=== PATIENT | male | born 1955 | race Caucasian/White ===

== ENCOUNTER 2017-08-20 16:55 | Inpatient (IN) | payer OTHER ==
[~2017-08-20] VITALS: Ht 193 cm; Wt 123.1 kg
[2017-08-20] MEDS ORDERED: IV NORMAL SALINE 1,000ML 1,000 ML IV SCH (17:05)
--- NOTE | 2017-08-20 17:05 | PHYS DOC ---
General Chief Complaint: RAPID HEART RATE Stated Complaint: shortness of breath Time Seen by MD: 17:03 Source: patient, RN/MD Exam Limitations: no limitations Problems: (JOSE TOVAR DO) Time Seen by MD: 18:40 Problems: (TROY GOLDSTEIN MD) History of Present Illness Initial Comments 61-year-old male sent downstairs from PCPs office for rapid heart rate and dyspnea. Patient states that he's had dyspnea with exertion and at times at rest intermittently for the past month. He denies any actual chest pain diaphoresis nausea arm or neck symptoms. Patient denies any ongoing medical problems he takes no medications daily is a nonsmoker and nonuser of alcohol or illicit substances. Through the discussion patient does state that his father had atrial fibrillation he is familiar with rate control and anticoagulation. Renetta Montague called down to the emergency department and spoke to me, states that this 7-year-old male presented to her office complaining of shortness of breath for the past month. States that he denied any chest pain or syncope, his heart rate was found to range from 132-150 bpm oxygen saturation 97% on room air and blood pressure 90/60. She is getting together a full H&P and we'll send it down with the patient, she reports that he takes no medications daily. Timing/Duration: other (one month) Severity: moderate Modifying Factors: worse with movement, improves with rest Associated Symptoms: shortness of breath (JOSE TOVAR DO) Allergies: Coded Allergies: No Known Drug Allergies (Unverified , 08/20/17) Past Medical History Medical History: no pertinent history Surgical History: no surgical history (JOSE TOVAR DO) Social History Smoker: non-smoker Alcohol: none Drugs: none (JOSE TOVAR DO) Review of Systems Constitutional: denies chills, denies diaphoresis, denies fever, malaise Respiratory: denies cough, shortness of breath, denies wheezing Cardiovascular: denies chest pain, denies palpitations, denies syncope Gastrointestinal: denies abdominal pain, denies nausea, denies vomiting Musculoskeletal: denies back pain, denies joint swelling, denies muscle pain, denies neck pain Psychiatric/Neurological: denies headache, denies numbness, denies paresthesia Hematologic/Lymphatic: denies blood clots, denies easy bleeding, denies easy bruising (JOSE TOVAR DO) Physical Exam General Appearance: WD/WN, no apparent distress Eyes: bilateral eye normal inspection, bilateral eye PERRL, bilateral eye EOMI Ear, Nose, Throat: hearing grossly normal, normal ENT inspection, normal pharynx Neck: non-tender, supple Respiratory: normal breath sounds, no respiratory distress Cardiovascular: normal peripheral pulses, tachycardia, irregularly irregular Gastrointestinal: normal bowel sounds, soft Back: no CVA tenderness, no vertebral tenderness Extremities: normal range of motion, non-tender, normal inspection, no pedal edema, no calf tenderness Neurologic/Psychiatric: haz tech II-XII nml as tested, no motor/sensory deficits, alert, normal mood/affect, oriented x 3 Skin: normal color, warm/dry (JOSE TOVAR DO) Orders, Labs, Meds EKG: Atrial fibrillation with rapid ventricular response 137 bpm interpreted by hi 1814: Multiple studies are pending, patient signed out to Dr. Goldstein at shift change. See his documentation for results and patient disposition. (JOSE TOVAR DO) Orders, Labs, Meds Laboratory Tests Test 08/20/17 17:45 White Blood Count 6.8 x10^3/uL (4.0-11.0) Red Blood Count 4.78 x10^6/uL (4.30-5.70) Hemoglobin 14.3 g/dL (13.0-17.5) Hematocrit 43.1 % (39.0-53.0) Mean Corpuscular Volume 90 fL (79-100) Mean Corpuscular Hemoglobin 30 pg (25-35) Mean Corpuscular Hemoglobin Concent 33 g/dL (31-37) Red Cell Distribution Width 15.6 % (11.5-14.5) H Platelet Count 163 x10^3/uL (140-400) Neutrophils (%) (Auto) 64 % (31-73) Lymphocytes (%) (Auto) 23 % (24-48) L Monocytes (%) (Auto) 11 % (0-9) H Eosinophils (%) (Auto) 2 % (0-3) Basophils (%) (Auto) 1 % (0-3) Neutrophils # (Auto) 4.4 x10^3uL (1.8-7.7) Lymphocytes # (Auto) 1.6 x10^3/uL (1.0-4.8) Monocytes # (Auto) 0.7 x10^3/uL (0.0-1.1) Eosinophils # (Auto) 0.1 x10^3/uL (0.0-0.7) Basophils # (Auto) 0.0 x10^3/uL (0.0-0.2) Sodium Level 140 mmol/L (136-145) Potassium Level 4.0 mmol/L (3.5-5.1) Chloride Level 105 mmol/L (98-107) Carbon Dioxide Level 25 mmol/L (21-32) Anion Gap 10 (6-14) Blood Urea Nitrogen 16 mg/dL (8-26) Creatinine 0.9 mg/dL (0.7-1.3) Estimated GFR (Cockcroft-Gault) 86.1 BUN/Creatinine Ratio 18 (6-20) Glucose Level 104 mg/dL (70-99) H Lactic Acid Level 1.0 mmol/L (0.4-2.0) Calcium Level 8.7 mg/dL (8.5-10.1) Total Bilirubin 1.0 mg/dL (0.2-1.0) Aspartate Amino Transferase (AST) 32 U/L (15-37) Alanine Aminotransferase (ALT) 52 U/L (16-63) Alkaline Phosphatase 71 U/L (46-116) Creatine Kinase 145 U/L (39-308) Troponin I Quantitative 0.025 ng/mL (0-0.055) KP-Aqn-R-Type Natriuretic Peptide 3527 pg/mL (0-124) H Total Protein 6.8 g/dL (6.4-8.2) Albumin 3.6 g/dL (3.4-5.0) Albumin/Globulin Ratio 1.1 (1.0-1.7) Lipase 320 U/L (73-393) [address] [address] IMAGING REPORT Signed PATIENT: MAREN CARMONA ACCOUNT: [id number] : 1955 LOCATION: ER AGE: 61 SEX: M EXAM STATUS: REG ER ORD. PHYSICIAN: JOSE TOVAR DO REASON: sob PROCEDURE: PORTABLE CHEST 1V PORTABLE CHEST 1V-2 AP images were obtained. History: SOA. Comparison: None are available Findings: Cardiomediastinal silhouette is enlarged. No focal airspace consolidation. No pneumothorax identified. No evidence of pleural effusion. Impression: Enlargement of the cardiac silhouette. No evidence of acute infiltrate. Electronically signed by: Scout Jones MD (08/20/2017 5:34 PM) [facility] DICTATED AND SIGNED BY: SCOUT JONES MD DATE: 08/20/171731 CC: MARAH MONTAGUE APRN; JOSE TOVAR ~ Is a pleasant 7-year-old male with no major medical problems who presents with irregular heartbeat and shortness of breath. On initial presentation it looks like he is in A. fib and RVR with no history of PE or risk factors for PE he seconds several risk for PE because of untreated H her for evaluation. Patient is not tachypneic hypoxic but is very tachycardic. He was given digoxin prior to my arrival and I encouraged Dr. talbot to give him a dose of verapamil 10 mg IV. He is still tachycardic rate 110. Time is now 7:30 patient's heart rate is improved significantly with the verapamil IV push over 2 minutes. His heart rate is now below 90. He is not short of breath and having chest pain but he did have an elevated d-dimer noted upon initial presentation of 2.28 which will require further definitive definitive testing because of his atrial fibrillation he is at increased risk for PE. CT angios the chest return at approximately 8 PM demonstrates no specific finding for PE he does have evidence of possible early congestive heart failure with significant calcification of the aorta and a small pleural effusion. At this point I discussed factors and admission with the patient at the bedside. Because of his new onset atrial fibrillation I will also treated with a dose of Lovenox to protect him from the development of clots. It looks like he is rate controlled with a heart rate less than 90 I will repeat an EKG and admitted to the hospital to see cardiology and repeat serial enzymes to ensure that he is not suffering from cardiac ischemia. Plate Sensitizer note: On-call physician Dr. Ni Plate Sensitizer called at of the service service called at approximately 8:02 PM Consult called back at 8:02 PM Discussed the case I presented and they agreed with admission. Time of acceptance 8:02 PM "I have assessed this patient clinically and believe that their condition requires an admission to the hospital. After consulting the admitting physician about this case, they have asked that I admit this patient to their service as an inpatient based on the clinical presentation and my impression." I spent approximately 45-50 minutes working and engaged directly in the patient care providing critical care evaluation this includes but not limited to time spent engaged in work directly related to the individual patients care. I spent time at the bedside, reviewing test results, discussing the case with staff, documenting the medical record and time spent with EMS discussing specific treatment issues when the patient presented and during his evaluation. Differential diagnosis: Acute myocardial ischemia, heart failure, cardiac tamponade, bronchospasm, pulmonary embolism, pneumothorax, pulmonary infection i.e. bronchitis or pneumonia, upper airway obstruction, anaphylaxis, aspiration , psychogenic, pulmonary contusion, toxidrome, pneumomediastinum, noncardiogenic pulmonary edema or ARDS, COPD, tuberculosis, cystic fibrosis, asthma, high altitude pulmonary edema, valvular dysfunction, cardiac dysrhythmia , stroke, neuromuscular diseases like myasthenia gravis gravis, ALS, Guillain- Patel syndrome, metabolic acidosis to include diabetic ketoacidosis, sepsis, and obstructive disorders like massive obesity Impression: Early congestive heart failure, dilated cardio myopathy, atrial fibrillation now rate controlled, Disposition: Admission to the hospital as an inpatient (TROY GOLDSTEIN MD) JOSE TOVAR DO Aug 20, 2017 17:05 TROY GOLDSTEIN MD Aug 20, 2017 18:47
--- NOTE | 2017-08-20 17:14 | EKG ---
[address] [address] Test Date: 2017-08-20 Test Time: 17:10:53 Pat Name: MAREN CARMONA Department: Room: Gender: M Bird Sitter: ENDY : 1955 Requested By: JOSE TOVAR Order Number: [id number] Reading MD: Measurements Intervals Russell Rate: 137 P: GA: QRS: 17 QRSD: 92 T: 66 QT: 314 QTc: 476 Interpretive Statements IRREGULAR RHYTHM, NO P-WAVE FOUND OTHERWISE NORMAL ECG RI6.01 No previous ECG available for comparison
[2017-08-20] MEDS ORDERED: ASPIRIN 81 MG TAB.CHEW PO ONE (17:30)
--- NOTE | 2017-08-20 17:37 | RAD ---
PORTABLE CHEST 1V-2 AP images were obtained. History: SOA. Comparison: None are available Findings: Cardiomediastinal silhouette is enlarged. No focal airspace consolidation. No pneumothorax identified. No evidence of pleural effusion. Impression: Enlargement of the cardiac silhouette. No evidence of acute infiltrate. Electronically signed by: Scout Nation MD (08/20/2017 5:34 PM) [facility]
[2017-08-20] MEDS ORDERED: DIGOXIN IV 500 MCG/2 ML AMPUL. IV ONE (18:00)
[2017-08-20 18:06] LABS: BASO % 1 % (0-3); EOS # 0.1 x10^3/uL (0.0-0.7); EOS % 2 % (0-3); HEMATOCRIT 43.1 % (39.0-53.0); HEMOGLOBIN 14.3 g/dL (13.0-17.5); LYMPH # 1.6 x10^3/uL (1.0-4.8); LYMPH % 23 % (24-48); MEAN CORPUSCULAR HEMOGLOBIN 30 pg (25-35); MEAN CORPUSCULAR HGB CONC 33 g/dL (31-37); MEAN CORPUSCULAR VOLUME 90 fL (79-100); MONO # 0.7 x10^3/uL (0.0-1.1); MONO % 11 % (0-9); NEUT # 4.4 x10^3uL (1.8-7.7); NEUT % 64 % (31-73); PLATELET COUNT 163 x10^3/uL (140-400); RED BLOOD COUNT 4.78 x10^6/uL (4.30-5.70); RED CELL DISTRIBUTION WIDTH 15.6 % (11.5-14.5); WHITE BLOOD COUNT 6.8 x10^3/uL (4.0-11.0)
[2017-08-20 18:26] LABS: ALBUMIN 3.6 g/dL (3.4-5.0); ALBUMIN/GLOBULIN RATIO 1.1 (1.0-1.7); CALCIUM 8.7 mg/dL (8.5-10.1); CREATININE 0.9 mg/dL (0.7-1.3); GFR 86.1; TOTAL PROTEIN 6.8 g/dL (6.4-8.2)
[2017-08-20] MEDS ORDERED: VERAPAMIL 5 MG/2 ML VIAL. IV ONE ×2 (18:30→19:00)
[2017-08-20] MEDS ORDERED: IOHEXOL 300 MG/ML 75 ML VIAL. IV ONE (19:15)
[2017-08-20] MEDS ORDERED: CONTRAST GIVEN MC PRN (19:15)
--- NOTE | 2017-08-20 19:50 | RAD ---
Chest CTA History: Tachycardia, elevated d-dimer, shortness of air Technique: After bolus of intravenous contrast, CT imaging was performed of the chest. Multiplanar reconstruction images to include MIP reconstruction images are submitted. Exposure: One or more of the following individualized dose reduction techniques were utilized for this examination: 1. Automated exposure control 2. Adjustment of the mA and/or kV according to patient size 3. Use of iterative reconstruction technique. Contrast: 75 cc Omnipaque 300 Comparison: None Findings: [ ] The heart is enlarged. There is prominent coronary calcification. There is small dependent right pleural effusion. There is no pneumothorax. There is small quantity of free fluid about the visualized liver. There is mild reflux of contrast into the hepatic veins. There is no pericardial effusion. Accurate evaluation of more distal and smaller pulmonary arteries is limited on this exam as not as well opacified with contrast, also some motion degradation. No central pulmonary embolism is identified. There are somewhat enlarged right hilar nodes, largest about 1.1 cm short axis dimension. There is subcarinal node up to about 1.4 cm short axis dimension, some other smaller mediastinal nodes present. There are left hilar nodes, largest about 0.9 cm short axis. There is nonspecific sclerotic lesion T4 vertebral body. Impression: 1. Heart is enlarged and there is prominent coronary calcification. There is also small right pleural effusion and mild free fluid of the visualized abdomen in the right upper quadrant. Left ventricular failure is a consideration. 2. No central pulmonary embolism is identified, limited evaluation of the smaller and more distal branches on this exam. 3. There is nonspecific mediastinal and hilar lymphadenopathy. 4. There is nonspecific sclerotic lesion T4 vertebral body, possibly bone island although other marrow replacing lesion not excludable. Electronically signed by: Fernando Xiong MD (08/20/2017 7:47 PM) [facility]
[2017-08-20 20:09] LABS: AMPHETAMINE/METHAMPHETAMINE NEG (NEG); BARBITURATES NEG (NEG); BENZODIAZEPINES NEG (NEG); CANNABINOIDS NEG (NEG); COCAINE NEG (NEG); METHADONE NEG (NEG); OPIATES NEG (NEG); PHENCYCLIDINE NEG (NEG)
[2017-08-20] MEDS ORDERED: ENOXAPARIN ** NOTE DOSE ** SYRINGE SQ ONE (20:15)
[2017-08-20] MEDS ORDERED: ONDANSETRON PF 4 MG/2 ML VIAL. IV PRN (20:15)
[2017-08-20 20:23] LABS: BACTERIA,URINE 0 /HPF (0-FEW); BILIRUBIN,URINE NEG (NEG); CLARITY,URINE CLEAR; COLOR,URINE YELLOW; GLUCOSE,URINE NEG (NEG); NITRITE,URINE NEG (NEG); RBC,URINE OCC /HPF (0-2); SQUAMOUS EPITHELIAL CELL,UR FEW /LPF; UROBILINOGEN,URINE 0.2 mg/dL (0.2 mg/dL); WBC,URINE OCC /HPF (0-4)
[2017-08-20 21:52] VITALS: BP 113/87
[2017-08-20] MEDS: IV NORMAL SALINE 1,000ML 1,000 ML IV SCH (22:02)
[2017-08-21 03:00] VITALS: BP 111/91
[2017-08-21 03:53] LABS: HEMOGLOBIN 13.5 g/dL (13.0-17.5); RED BLOOD COUNT 4.55 x10^6/uL (4.30-5.70); RED CELL DISTRIBUTION WIDTH 15.5 % (11.5-14.5); WHITE BLOOD COUNT 6.3 x10^3/uL (4.0-11.0)
[2017-08-21 04:07] LABS: CALCIUM 8.3 mg/dL (8.5-10.1); GFR 76.2; MAGNESIUM 1.8 mg/dL (1.8-2.4); POTASSIUM 3.7 mmol/L (3.5-5.1)
[2017-08-21 07:11] VITALS: BP 113/79
[2017-08-21] MEDS: IV NORMAL SALINE 1,000ML 1,000 ML IV SCH (08:37)
[2017-08-21] MEDS ORDERED: FLU VACC QS2017-18 (36MOS+)/PF 0.5 ML SYRINGE. VAX IM ONE (09:00)
--- NOTE | 2017-08-21 09:36 | PDOC2 ---
PRASANTH GLASS TEMPORARY STAFF ACCOUNTANT 08/21/17 0936: CONSULT Date of Admission DATE: 08/21/17 TIME: 09:28 Reason for Consult: atrial fibrillation with RVR Problem List Problems Medical Problems: (1) New onset atrial fibrillation Status: Acute History of Present Illness Mr Pearson is a 61 year old male who presented to his PCP yesterday for evaluation of dyspnea on exertion that he has been experiencing for the last couple weeks. He denies chest pain, congestive symptoms, edema, palpitations, lightheadedness or syncope. He denies any cough, fever or chills. He denies any recent travel or sick exposures. Past Medical History no significant medical history Past Surgical History no significant history Family History Father with atrial fibrillation Social History remote smoking history, no significant ETOh, no illicit drugs Current Medications Current Medications Aspirin (Children'S Aspirin) 324 mg 1X ONCE PO Last administered on 08/20/17at 17:33; Start 08/20/17 at 17:30; Stop 08/20/17 at 17:31; Status DC Sodium Chloride 1,000 ml @ 1,000 mls/hr Q1H IV Last administered on 08/20/17at 17:43; Start 08/20/17 at 17:05; Stop 08/20/17 at 18:04; Status DC Digoxin (Lanoxin) 500 mcg 1X ONCE IV Last administered on 08/20/17at 17:49; Start 08/20/17 at 18:00; Stop 08/20/17 at 18:03; Status DC Verapamil HCl (Verapamil HCl) 10 mg 1X ONCE IV Last administered on 08/20/17at 18:59; Start 08/20/17 at 18:30; Stop 08/20/17 at 18:31; Status DC Verapamil HCl (Verapamil HCl) 10 mg 1X ONCE IV ; Start 08/20/17 at 19:00; Stop 08/20/17 at 19:01; Status DC Iohexol (Omnipaque 300 Mg/ml) 75 ml 1X ONCE IV Last administered on 08/20/17at 19:19; Start 08/20/17 at 19:15; Stop 08/20/17 at 19:16; Status DC Info (Do NOT chart on this entry -- for MONITORING) 1 each PRN DAILY PRN MC SEE COMMENTS; Start 08/20/17 at 19:15; Stop 08/22/17 at 19:14 Ondansetron HCl (Zofran) 4 mg PRN Q4HRS PRN IV NAUSEA/VOMITING; Start 08/20/17 at 20:15; Stop 08/21/17 at 20:14 Sodium Chloride 1,000 ml @ 80 mls/hr [id number] IV Last administered on at 22:02; Start 08/20/17 at 20:07; Stop 08/21/17 at 20:06 Enoxaparin Sodium (Lovenox 120mg Syringe) 120 mg 1X ONCE SQ Last administered on 08/20/17at 22:01; Start 08/20/17 at 20:15; Stop 08/20/17 at 20:16; Status DC Influenza Virus Vaccine Quadrival (Fluarix Quad 7557-2350 Syringe) 0.5 ml ONCE ONCE VAX IM Last administered on 08/21/17at 09:01; Start 08/21/17 at 09:00; Stop 08/21/17 at 09:01; Status DC Active Scripts Active Reported No Known Medications Prior To Admisstion (Info) Each 1 Each Allergies: Coded Allergies: Penicillins (Verified Allergy, Unknown, Unknown, 08/20/17) Review of System as per HPI or negative General: Alert, Oriented X3, Cooperative, No acute distress HEENT: Atraumatic, EOMI, Mucous membr. moist/pink Lungs: Clear to auscultation, Normal air movement Heart: Other (irregular rate and rhythm, no gallops, clicks or rubs, no significant murmurs) Abdomen: Normal bowel sounds, Soft, No tenderness Extremities: No cyanosis, No edema, Normal pulses Neuro: Normal speech, Strength at 5/5 X4 ext, Cranial nerves 3-12 NL Psych/Mental Status: Mental status NL, Mood NL VITALS Vital Signs Date Time Temp Pulse Resp B/P (MAP) Pulse Ox O2 Delivery O2 Flow Rate FiO2 08/21/17 07:11 101 20 113/79 (90) 96 Room Air 08/20/17 21:52 97.9 Labs Laboratory Tests Test 08/20/17 17:45 08/20/17 19:35 08/20/17 23:15 08/21/17 03:30 White Blood Count 6.8 x10^3/uL (4.0-11.0) 6.3 x10^3/uL (4.0-11.0) Red Blood Count 4.78 x10^6/uL (4.30-5.70) 4.55 x10^6/uL (4.30-5.70) Hemoglobin 14.3 g/dL (13.0-17.5) 13.5 g/dL (13.0-17.5) Hematocrit 43.1 % (39.0-53.0) 41.0 % (39.0-53.0) Mean Corpuscular Volume 90 fL (79-100) 90 fL (79-100) Mean Corpuscular Hemoglobin 30 pg (25-35) 30 pg (25-35) Mean Corpuscular Hemoglobin Concent 33 g/dL (31-37) 33 g/dL (31-37) Red Cell Distribution Width 15.6 % (11.5-14.5) 15.5 % (11.5-14.5) Platelet Count 163 x10^3/uL (140-400) 148 x10^3/uL (140-400) Neutrophils (%) (Auto) 64 % (31-73) Lymphocytes (%) (Auto) 23 % (24-48) Monocytes (%) (Auto) 11 % (0-9) Eosinophils (%) (Auto) 2 % (0-3) Basophils (%) (Auto) 1 % (0-3) Neutrophils # (Auto) 4.4 x10^3uL (1.8-7.7) Lymphocytes # (Auto) 1.6 x10^3/uL (1.0-4.8) Monocytes # (Auto) 0.7 x10^3/uL (0.0-1.1) Eosinophils # (Auto) 0.1 x10^3/uL (0.0-0.7) Basophils # (Auto) 0.0 x10^3/uL (0.0-0.2) Prothrombin Time 12.5 SEC (9.4-11.4) Prothromb Time International Ratio 1.2 (0.9-1.1) Activated Partial Thromboplast Time 24 SEC (23-33) D-Dimer (Jen) 2.28 mg/L (0.00-0.50) Sodium Level 140 mmol/L (136-145) 139 mmol/L (136-145) Potassium Level 4.0 mmol/L (3.5-5.1) 3.7 mmol/L (3.5-5.1) Chloride Level 105 mmol/L (98-107) 106 mmol/L (98-107) Carbon Dioxide Level 25 mmol/L (21-32) 27 mmol/L (21-32) Anion Gap 10 (6-14) 6 (6-14) Blood Urea Nitrogen 16 mg/dL (8-26) 14 mg/dL (8-26) Creatinine 0.9 mg/dL (0.7-1.3) 1.0 mg/dL (0.7-1.3) Estimated GFR (Cockcroft-Gault) 86.1 76.2 BUN/Creatinine Ratio 18 (6-20) Glucose Level 104 mg/dL (70-99) 98 mg/dL (70-99) Lactic Acid Level 1.0 mmol/L (0.4-2.0) Calcium Level 8.7 mg/dL (8.5-10.1) 8.3 mg/dL (8.5-10.1) Total Bilirubin 1.0 mg/dL (0.2-1.0) Aspartate Amino Transf (AST/SGOT) 32 U/L (15-37) Alanine Aminotransferase (ALT/SGPT) 52 U/L (16-63) Alkaline Phosphatase 71 U/L (46-116) Creatine Kinase 145 U/L (39-308) Troponin I Quantitative 0.025 ng/mL (0-0.055) 0.030 ng/mL (0-0.055) 0.021 ng/mL (0-0.055) FC-Gab-I-Type Natriuretic Peptide 3527 pg/mL (0-124) Total Protein 6.8 g/dL (6.4-8.2) Albumin 3.6 g/dL (3.4-5.0) Albumin/Globulin Ratio 1.1 (1.0-1.7) Lipase 320 U/L (73-393) Urine Collection Type Unknown Urine Color Yellow Urine Clarity Clear Urine pH 5.0 Urine Specific [place] 1.025 Urine Protein 30 mg/dl (NEG-TRACE) Urine Glucose (UA) Neg mg/dL (NEG) Urine Ketones (Stick) Neg mg/dL (NEG) Urine Blood Neg (NEG) Urine Nitrite Neg (NEG) Urine Bilirubin Neg (NEG) Urine Urobilinogen Dipstick 0.2 mg/dL (0.2 mg/dL) Urine Leukocyte Esterase Neg (NEG) Urine RBC Occ /HPF (0-2) Urine WBC Occ /HPF (0-4) Urine Squamous Epithelial Cells Few /LPF Urine Bacteria 0 /HPF (0-FEW) Urine Mucus Mod /LPF Urine Opiates Screen Neg (NEG) Urine Methadone Screen Neg (NEG) Urine Barbiturates Neg (NEG) Urine Phencyclidine Screen Neg (NEG) Urine Amphetamine/Methamphetamine Neg (NEG) Urine Benzodiazepines Screen Neg (NEG) Urine Cocaine Screen Neg (NEG) Urine Cannabinoids Screen Neg (NEG) Urine Ethyl Alcohol Neg (NEG) Magnesium Level 1.8 mg/dL (1.8-2.4) Images CXR - Impression: Enlargement of the cardiac silhouette. No evidence of acute infiltrate. CT - Impression: 1. Heart is enlarged and there is prominent coronary calcification. There is also small right pleural effusion and mild free fluid of the visualized abdomen in the right upper quadrant. Left ventricular failure is a consideration. 2. No central pulmonary embolism is identified, limited evaluation of the smaller and more distal branches on this exam. 3. There is nonspecific mediastinal and hilar lymphadenopathy. 4. There is nonspecific sclerotic lesion T4 vertebral body, possibly bone island although other marrow replacing lesion not excludable. Assessment/Plan 1. atrial fibrillation with RVR - Rate controlled after IV verapamil and digoxin. Add oral metoprolol to maintain heart rate control. [id number] = 0. As unknown duration of atrial fibrillation, suggest anticoagulation for 4 weeks, outpatient MCT and then follow up to discuss ECV vs Antiarrhythmic. Should be able to stop anticoag in favor of aspirin after that. 2. dyspnea on exertion - no overt heart failure. likely secondary to #1. Check echo and if normal, outpatient MPI. 3. unknown lipid status - check lipids. Problems: MARINA ELDER MD 08/21/17 1629: CONSULT Allergies: Coded Allergies: Penicillins (Verified Allergy, Unknown, Unknown, 08/20/17) Assessment/Plan Patient seen and examined 1. Probable new onset of atrial fibrillation. Rate initially elevated but now under better control. Will continue beta blockers and calcium blockers if needed for rate control. Would anticoagulate. We'll check an echocardiogram. 2. Increasing dyspnea on exertion. Patient reports several weeks of increasing dyspnea. This occurs with exertion but not at rest. Continue medical treatment and rate control as above. We'll check an echocardiogram. Further treatment based on clinical course and results of echocardiogram. 3. Uncertain lipid levels. Check a panel. Thank you for allowing us to participate in the care of your patient. Problems: PRASANTH GLASS APRN Aug 21, 2017 09:36 MARINA ELDER MD Aug 21, 2017 16:29
[2017-08-21 09:43] VITALS: BP 101/88
[2017-08-21] MEDS ORDERED: METOPROLOL TART IMMED RELEASE 25 MG TABLET PO SCH (10:00)
[2017-08-21] MEDS: APIXABAN 5 MG TABLET. PO SCH ×2 (10:06→12:28)
[2017-08-21 11:59] VITALS: BP 104/79
--- NOTE | 2017-08-21 12:56 | CARD ---
MR#: [id number] Date of Study: 08/21/2017 Ordering Physician: PRASANTH GLASS, Referring Physician: CANDI STREETER Tech: MAURICE Orellana APPROVED REPORT EXAM: Two-dimensional and M-mode echocardiogram with Doppler and color Doppler. INDICATION Dyspnea Atrial Fibrillation 2D DIMENSIONS Left Atrium(2D)5.6 (1.6-4.0cm)IVSd1.2 (0.7-1.1cm) Aortic Root(2D)3.0 (2.0-3.7cm)LVDd7.8 (3.9-5.9cm) LVOT Diameter2.4 (1.8-2.4cm)PWd1.3 (0.7-1.1cm) LVDs7.1 (2.5-4.0cm)FS (%) 4.0 % SV6.0 ml Aortic Valve LVOT Peak Ramin.47.4cm/s Tricuspid Valve TR P. [id number] TR Peak [id number] LEFT VENTRICLE The Left Ventricle is moderately dilated. There is mild concentric left ventricular hypertrophy. The ejection fraction is severely impaired. The Ejection Fraction is 15-20%. There is severe global hypok inesis of the left ventricle. No left ventricle thrombus noted on this study. RIGHT VENTRICLE The right ventricle is mildly dilated. The right ventricle is borderline hypertrophied. Systolic func tion is mildly reduced. ATRIA The left atrium is moderately dilated. The right atrium is moderately dilated. The interatrial septum is intact with no evidence for an atrial septal defect or patent foramen ovale as noted on 2-D or Do ppler imaging. AORTIC VALVE The aortic valve is trileaflet. Doppler and Color Flow revealed trace aortic regurgitation. There is no significant aortic valvular stenosis. MITRAL VALVE The mitral valve leaflets are mildly calcified. There is no mitral valve stenosis. Doppler and Color- flow revealed moderate to moderate severe mitral regurgitation. TRICUSPID VALVE Doppler and Color Flow revealed moderate to moderately severe tricuspid regurgitation. There is moder ate pulmonary hypertension. PASP is 51mmHg. There is no tricuspid valve stenosis. PULMONIC VALVE The pulmonic valve is not well visualized. Doppler and Color Flow revealed no pulmonic valvular regur gitation. There is no pulmonic valvular stenosis. GREAT VESSELS The aortic root is normal in size. The pulmonary artery and branches are dilated. The IVC is severley dilated. There is no collapse of the IVC with inspiration. PERICARDIAL EFFUSION There is no pleural effusion. There is no evidence of significant pericardial effusion. Critical Notification Physician Notified Critical Value: Yes <Conclusion> The Left Ventricle is moderately dilated. The ejection fraction is severely impaired. The Ejection Fraction is 15-20%. There is severe global hypokinesis of the left ventricle. There is mild concentric left ventricular hypertrophy. There is no significant aortic valvular stenosis. Doppler and Color Flow revealed trace aortic regurgitation. Doppler and Color-flow revealed moderate to moderate severe mitral regurgitation. Doppler and Color Flow revealed moderate to moderately severe tricuspid regurgitation. There is moderate pulmonary hypertension. PASP is 51mmHg. Signed by : Sterling Diaz MD Electronically Approved : 08/21/2017 12:56:18
[2017-08-21 13:28] LABS: THYROID STIM HORMONE (TSH) 2.826 uIU/mL (0.358-3.740)
[2017-08-21 15:08] VITALS: BP 104/73
--- NOTE | 2017-08-21 15:51 | SSS ---
ADMIT DATE: 08/21/2017 HISTORY OF PRESENT ILLNESS: The patient is a 61-year-old male patient who apparently saw his primary care physician with a complaint of shortness of breath and was found to be in atrial fibrillation with rapid ventricular response. He stated that his dyspnea with exertion and at times at rest evidently has been going on for the last month. He denies any actual chest pain, diaphoresis, nausea, arm or neck symptoms. Denies any ongoing medical problems. He takes no medication. SOCIAL HISTORY: He is a nonsmoker, does not use any alcohol or use any illicit drugs. On arrival to the Emergency Room, he was found to be in atrial fibrillation with rapid ventricular response with the heart rate ranged between 130-150 beats per minute. However, his oxygen saturation was 97% on room air. Blood pressure was borderline low at 90/60. PAST MEDICAL HISTORY: Unremarkable in that he has never been diagnosed with any medical problem. No hypertension, diabetes, or hyperlipidemia. PAST SURGICAL HISTORY: Unremarkable. ALLERGIES: He is allergic to PENICILLIN. MEDICATIONS: Only [id number]-faj-lgglbov medication, multivitamin. FAMILY HISTORY: His father at the age of 52 because of myocardial infarction and he was known to have atrial fibrillation and was on anticoagulant. His mother is still alive at the age of 83 and basically healthy. SOCIAL HISTORY: He is , has 5 kids, 2 of them are stepsons. He quit smoking 30 years ago. Does not drink alcohol or use any recreational drugs. He works as a cook. PHYSICAL EXAMINATION: GENERAL: On examining him, the patient looked well and was clearly in no apparent respiratory distress, slightly pale, but not jaundiced or cyanosed from thyromegaly. No jugular venous distension. No lower limb edema. VITAL SIGNS: His heart rate was 121, irregularly irregular, blood pressure 114/74, temperature was 97.6, respiratory rate was 18, and oxygen saturation was 95%. HEAD, EYES, EARS, NOSE, AND THROAT: Normocephalic, atraumatic. NECK: Supple. HEART: Showed normal first and second heart sounds with no gallop, rub, or murmur. CHEST: Showed central trachea, equal bilateral expansion and air entry, vesicular breath sounds. No crepitation or rhonchi. ABDOMEN: Distended, soft, nontender. No guarding or rigidity. No organomegaly. All hernial orifices intact. Bowel sounds normal. NEUROLOGIC: He was awake, alert, responding appropriately. Cranial nerves intact. He moves extremities without difficulty, ambulates without assistance or assistive devices. While in the Emergency Room, he has lab work, which showed a white cell count of 6800, hemoglobin 14, hematocrit 43, MCV 90, and platelet count of 163,000. His initial chemistry at the Emergency Room showed a serum sodium of 140, potassium 4, chloride 105, bicarbonate 25, anion gap of 10, BUN 16, creatinine 0.9, estimated GFR was 86 mL per minute, her glucose was 104, calcium was 8.7. Total bilirubin, AST, ALT, alkaline phosphatase were normal. His CK was 145. Troponin was 0.025. His B-type natriuretic peptide was 3527. Total protein was 6.8. Albumin 3.6. His serum lipase was 320. His prothrombin time was 12.5, INR 1.2, PTT was 24. D-dimer was high 2.28 mg/dL. Urinalysis was unremarkable. Toxic screen was essentially negative. His chest x-ray showed that the patient has enlarged cardiomediastinal silhouette. There is no focal airspace consolidation. No pneumothorax. No evidence of pleural effusion. CT angio of the chest showed that the heart is enlarged. There is prominent coronary calcification. There is also small right pleural effusion and mild free fluid of the visualized abdomen in the right upper quadrant. Left ventricular failure is consideration. No central pulmonary embolism identified. Limited evaluation of the smaller and more distal branches on exam. There is no specific mediastinal or hilar lymphadenopathy. There is nonspecific sclerotic lesion at T4 vertebral body, possibly bone island, although other ____ lesion cannot be excluded. The patient has had 2 more sets of cardiac enzymes which showed that troponin has risen to 0.03 and 0.021. He was seen by the Cardiology team and apparently has had an echocardiogram done, which basically showed that his left ventricle is moderately dilated. The ejection fraction is severely impaired. The ejection fraction is only 15-20%. There is severe global hypokinesis of the left ventricle. There is mild concentric left ventricular hypertrophy. There is no significant aortic valvular stenosis. Doppler and color flow revealed trace aortic regurgitation, moderate to moderately severe mitral regurgitation, and moderate to moderately severe tricuspid regurgitation. His pulmonary artery systolic pressure is 51 mmHg. Given the new finding, the Cardiology team recommended transferring him to [facility] for cardiac catheterization that is scheduled tomorrow morning. FINAL DISCHARGE DIAGNOSES: 1. New extent of atrial fibrillation. 2. Systolic congestive heart failure, perhaps acute on chronic, moderate to moderately severe mitral regurgitation, moderately severe tricuspid regurgitation. His serum TSH was normal at 2.826 and his fasting lipid profile showed that his triglycerides were 57%, total cholesterol 93, LDL cholesterol 61, VLDL was 7, and HDL was 25 with the ratio of 3. He will be discharged to [facility] to continue on apixaban 5 mg twice a day, metoprolol tartrate 25 mg twice a day, and Zofran 4 mg IV every 4 hours as needed. CANDI STREETER MD DR: THOMAS/keke JOB#: [id number] / [id number]
[2017-08-21] MEDS ORDERED: DIGOXIN IV 500 MCG/2 ML AMPUL. IV ONE (16:45)
[2017-08-21 19:00] VITALS: BP 107/84
== END 2017-08-21 19:38 | disposition short-term general hospital (02) | DRG 308 ==
LOC: ER 16:55 → ICU 20:09
PROVIDERS: ADMIT Internal Medicine; ATTEND Internal Medicine
DX: I48.91 Unspecified atrial fibrillation (principal); I50.23 Acute on chronic systolic (congestive) heart failure; I42.9 Cardiomyopathy, unspecified; I08.1 Rheumatic disorders of both mitral and tricuspid valves; Z79.01 Long term (current) use of anticoagulants; Z82.49 Family history of ischemic heart disease and other diseases of the circulatory system; Z87.891 Personal history of nicotine dependence; Z88.0 Allergy status to penicillin; Z79.899 Other long term (current) drug therapy; Z23 Encounter for immunization
CPT/HCPCS: 36415; 71045; 71275; 80048; 80053; 80061; 80307; 81001; 82550; 83605; 83690; 83735; 83880; 84443; 84484; 85025; 85027; 85379; 85610; 85730; 87040; 87641; 90686; 93005; 93306; J1160; J1650; Q9967; G0479; J7030

== ENCOUNTER → 2020-08-16 | Outpatient (CLI) | payer OTHER ==
--- NOTE | 2020-08-16 11:30 | RAD ---
EXAM: Pelvis and right hip, 3 views; right knee, 3 views. HISTORY: Pain. COMPARISON: None. FINDINGS: Pelvis and right hip: A frontal view the pelvis and 2 views of the right hip are obtained. There is r ight hip joint space narrowing with degenerative subchondral sclerosis, subchondral cyst formation an d marginal femoral head and acetabular spurring. There is degenerative change involving the visualize d lumbar spine and suspected lumbar scoliosis, not formally assessed on this exam. Right knee: 3 views of the right knee are obtained. There is medial compartment joint space narrowing and medial compartment predominant truck vertebral spurring. There is trace joint fluid without a si gnificant effusion. There is no fracture, dislocation or subluxation. IMPRESSION: 1. Moderate to severe osteoarthritis of the right hip. 2. Mild medial compartment predominant tricompartmental osteoarthritis of the right knee. Electronically signed by: Milady Yeung MD (08/16/2020 11:28 AM) [id number]
== END ==
LOC: PMG 11:03
PROVIDERS: ATTEND Physician Assistant Medical
DX: M16.11 Unilateral primary osteoarthritis, right hip (principal); M17.11 Unilateral primary osteoarthritis, right knee
CPT/HCPCS: 73502; 73562

== ENCOUNTER 2020-12-14 13:11 | Emergency (ER) | payer OTHER ==
[~2020-12-14] VITALS: Ht 193 cm; Wt 129.5 kg
[2020-12-14 13:20] VITALS: BP 138/98
--- NOTE | 2020-12-14 14:28 | PHYS DOC ---
Past History Past Medical History: No Pertinent History Past Surgical History: Angioplasty, Hip Replacement Alcohol Use: None Drug Use: None General Adult EDM: Chief Complaint: WOUND CHECK HPI: HPI: 65-year-old male presents for wound check. The patient had hip surgery 2 weeks ago today. He is scheduled to go back to his surgeon tomorrow to have his dressing removed or changed. He presents today because when he was getting ready to go to his physical therapy he noticed that the wound covering was completely filled with blood and this was not the case yesterday. He was concerned this could indicate a more significant problem. He attempted to call the orthopedic office but did not get a call back. He decided to come to the emergency room. He denies any other symptoms such as increased pain, dizziness, lightheadedness, nausea. Review of Systems: Review of Systems: Constitutional: Denies fever or chills Eyes: Denies change in visual acuity HENT: Denies nasal congestion or sore throat Respiratory: Denies cough or shortness of breath Cardiovascular: Denies chest pain or edema GI: Denies abdominal pain, nausea, vomiting, bloody stools or diarrhea : Denies dysuria Musculoskeletal: Denies back pain or joint pain Integument: Soaked right hip wound dressing Neurologic: Denies headache, focal weakness or sensory changes Endocrine: Denies polyuria or polydipsia Lymphatic: Denies swollen glands Psychiatric: Denies depression or anxiety Allergies: Allergies: Allergies Coded Allergies Type Severity Reaction Last Updated Verified Penicillins Allergy Unknown Unknown 08/20/17 Yes Physical Exam: PE: Constitutional: Well developed, well nourished, no acute distress, non-toxic appearance. [] HENT: Normocephalic, atraumatic, bilateral external ears normal, oropharynx moist, no oral exudates, nose normal. [] Eyes: PERRLA, EOMI, conjunctiva normal, no discharge. [] Neck: Normal range of motion, no tenderness, supple, no stridor. [] Cardiovascular:Heart rate regular rhythm, no murmur [] Lungs & Thorax: Bilateral breath sounds clear to auscultation [] Abdomen: Bowel sounds normal, soft, no tenderness, no masses, no pulsatile masses. [] Skin: Saturated right hip incision dressing with serosanguineous fluid [] Back: No tenderness, no CVA tenderness. [] Extremities: No tenderness, no cyanosis, no clubbing, ROM intact, no edema. [] Neurologic: Alert and oriented X 3, normal motor function, normal sensory function, no focal deficits noted. [] Psychologic: Affect normal, judgement normal, mood normal. [] Current Patient Data: Vital Signs: Vital Signs Date Time Temp Pulse Resp B/P (MAP) Pulse Ox O2 Delivery O2 Flow Rate FiO2 12/14/20 13:20 98.2 89 16 138/98 96 Room Air EKG: EKG: [] Radiology/Procedures: Radiology/Procedures: [] Heart Score: C/O Chest Pain: N/A Risk Factors: Risk Factors: DM, Current or recent (<one month) smoker, HTN, HLP, family history of CAD, obesity. Risk Scores: Score 0 - 3: 2.5% MACE over next 6 weeks - Discharge Home Score 4 - 6: 20.3% MACE over next 6 weeks - Admit for Clinical Observation Score 7 - 10: 72.7% MACE over next 6 weeks - Early Invasive Strategies Course & Med Decision Making: Course & Med Decision Making Pertinent Labs and Imaging studies reviewed. (See chart for details) The patient's wound dressing appears to be serosanguineous fluid. It is dark in color, but not solely blood. This could have been from leaking seroma. He has no other symptoms of concern. I believe it is reasonable for him to wait until tomorrow to remove the dressing at the surgeon's office. I spoke with the orthopedic surgeon on-call, Dr. Prince and he recommended we add additional dressing to help absorb any fluid that might leak. He does not believe he needs to be removed until the patient is seen in the office tomorrow. He is stable for discharge at this time. [] Dragon Disclaimer: Dragon Disclaimer: This electronic medical record was generated, in whole or in part, using a voice recognition dictation system. Departure Departure: Impression: Primary Impression: Encounter for postoperative wound check Disposition: 01 HOME / SELF CARE / HOMELESS Condition: STABLE Referrals: BRADLEY MCDUFFIE (PCP) Patient Instructions: Wound Check DRAGAN KELLY DO Dec 14, 2020 14:28
== END 2020-12-14 14:50 | disposition home or self-care (01) ==
LOC: ER 13:11
DX: Z48.01 Encounter for change or removal of surgical wound dressing (principal); Z88.0 Allergy status to penicillin
CPT/HCPCS: 99281

== ENCOUNTER → 2021-04-18 | Outpatient (CLI) | payer OTHER ==
--- NOTE | 2021-04-18 16:09 | RAD ---
EXAM: AP view both knees, lateral and tangential patellar view left knee DATE: 04/18/2021 2:25 PM INDICATION: Reason: KNEE PAIN / Spl. Instructions: / History: COMPARISON: No Prior FINDINGS: Left knee: Small tricompartmental osteophytes. No knee joint effusion. Neutral patellar tracking. No evidence of acute fracture or dislocation. Right knee single AP view right knee demonstrates trace medial compartment joint space narrowing and small associated osteophytes. IMPRESSION: No evidence of acute fracture or dislocation. Mild bilateral knee joint osteoarthritis Electronically signed by: Tony Mitchell MD (04/18/2021 4:07 PM) [id number]
== END ==
LOC: RAD 14:20
PROVIDERS: ATTEND Physician Assistant
DX: M17.0 Bilateral primary osteoarthritis of knee (principal); M25.762 Osteophyte, left knee; M25.761 Osteophyte, right knee
CPT/HCPCS: 73560; 73565